=== PATIENT | female | born 1980 | race Caucasian/White ===

== ENCOUNTER → 2016-05-17 | Outpatient (CLI) | payer OTHER ==
--- NOTE | 2016-05-17 12:04 | REP ---
TWO VIEW CHEST: There is no evidence of acute infiltrate. No pleural effusion is seen. The heart is normal in size. The mediastinal silhouette is unremarkable. The visualized osseous structures are intact. IMPRESSION: No acute pulmonary disease.
== END ==
LOC: M CLY 11:28
PROVIDERS: ATTEND Family Medicine
DX: R05 Cough (principal)

== ENCOUNTER → 2016-06-07 | Outpatient (REF) | payer OTHER | LOC: M SFHCWAGY 12:23 | PROVIDERS: ATTEND Nurse Practitioner Women's Health | DX: Z01.419 Encounter for gynecological examination (general) (routine) without abnormal findings (principal); Z11.51 Encounter for screening for human papillomavirus (HPV) ==

== ENCOUNTER → 2017-04-14 | Outpatient (REF) | payer OTHER ==
[2017-04-14 12:04] LABS: ALBUMIN 4.2 GM/DL (3.2-5.2); ALBUMIN/GLOBULIN RATIO 1.27 (1.00-1.93); ALKALINE PHOSPHATASE 61 U/L (45-117); ALT/SGPT 25 U/L (12-78); ANION GAP 6 MEQ/L (8-16); AST/SGOT 19 U/L (7-37); BILIRUBIN,TOTAL 0.7 MG/DL (0.2-1.0); BLOOD UREA NITROGEN 12 MG/DL (7-18); CALCIUM LEVEL 8.7 MG/DL (8.5-10.1); CARBON DIOXIDE LEVEL 30 MEQ/L (21-32); CHLORIDE LEVEL 103 MEQ/L (98-107); CHOLESTEROL LEVEL 200 MG/DL (<200); CHOLESTEROL RISK RATIO 2.173 (<5); CREATININE FOR GFR 0.81 MG/DL (0.55-1.30); GLOMERULAR FILTRATION RATE > 60.0 (>60); GLUCOSE, FASTING 84 MG/DL (70-100); HDL CHOLESTEROL 92 MG/DL (>40); LDL CHOLESTEROL 94.8 MG/DL (<100); NON-HDL-C 108 MG/DL; POTASSIUM SERUM 3.9 MEQ/L (3.5-5.1); SODIUM LEVEL 139 MEQ/L (136-145); THYROXINE (T4) 9.9 UG/DL (4.5-12.0); TOTAL PROTEIN 7.5 GM/DL (6.4-8.2); TRIGLYCERIDES LEVEL 66 MG/DL (<150)
[2017-04-14 12:09] LABS: TOTAL T3 89.7 NG/DL (60.0-181.0)
[2017-04-18 00:06] LABS: VITAMIN D 1,25 DIHYDROXY 27.9 pg/mL (19.9-79.3)
== END ==
LOC: M SFHCCLAY 08:23
DX: Z00.00 Encounter for general adult medical examination without abnormal findings (principal); Z13.29 Encounter for screening for other suspected endocrine disorder; Z13.220 Encounter for screening for lipoid disorders; E55.9 Vitamin D deficiency, unspecified

== ENCOUNTER → 2017-06-14 | Outpatient (REF) | payer OTHER | LOC: M SFHCWAGY 08:15 | DX: Z12.4 Encounter for screening for malignant neoplasm of cervix (principal) ==

== ENCOUNTER → 2018-01-26 | Outpatient (CLI) | payer OTHER ==
[2018-01-26 18:03] LABS: BASO % 0.4 % (0.0-1.0); EOS # 0.1 10^3/uL (0.0-0.50); EOS % 1.3 % (0.0-3.0); HEMOGLOBIN 12.6 g/dl (12.0-15.5); IMMATURE GRANULOCYTE % 0.5 % (0-3.0); LYMPH # 1.3 10^3/uL (1.5-4.5); LYMPH % 15.3 % (24.0-44.0); MEAN CORPUSCULAR HEMOGLOBIN 29.9 pg (27.0-33.0); MEAN CORPUSCULAR HGB CONC 33.2 g/dl (32.0-36.5); MONO # 0.6 10^3/uL (0.0-0.8); MONO % 6.7 % (0.0-5.0); NEUTROPHILS # 6.3 10^3/uL (1.8-7.7); NEUTROPHILS % 75.8 % (36.0-66.0); PLATELET COUNT, AUTOMATED 244 10^3/uL (150-450); RED BLOOD COUNT 4.22 10^6/uL (4.00-5.40); RED CELL DISTRIBUTION WIDTH 12.4 % (11.5-14.5); WHITE BLOOD COUNT 8.3 10^3/uL (4.0-10.0)
[2018-01-29 11:57] LABS: HBsAg Prenatal NEGATIVE (NEGATIVE); HIV 1&2 SCREEN CENTAUR NEGATIVE (NEGATIVE); RUBELLA IgG QUALITATIVE IMMUNE (IMMUNE)
[2018-01-29 11:57] LABS: HEPATITIS C VIRUS ABY INDEX 0.1 INDEX (<0.8)
== END ==
LOC: M SMT 13:37
DX: Z36.89 Encounter for other specified antenatal screening (principal)
CPT/HCPCS: 86762

== ENCOUNTER → 2018-04-03 | Outpatient (REF) | payer OTHER ==
[2018-04-03 15:32] LABS: CHLAMYDIA DNA AMPLIFICATION NEGATIVE (NEGATIVE); GC DNA AMPLIFICATION NEGATIVE (NEGATIVE)
== END ==
LOC: M LAB REF 13:10
PROVIDERS: ATTEND Advanced Practice Midwife
DX: O09.521 Supervision of elderly multigravida, first trimester (principal); Z3A.00 Weeks of gestation of pregnancy not specified

== ENCOUNTER → 2018-04-04 | Outpatient (CLI) | payer OTHER ==
--- NOTE | 2018-04-05 05:15 | REP ---
Clinical: Anatomical evaluation. Comparison: None . Findings: Examination demonstrates a single live intrauterine in cephalic presentation. motion is identified by technologist. Placenta is noted anterior and grade grade zero without evidence for placenta previa or abruption. Amniotic fluid volume is normal. Cervix measures 4.4 cm in length and appears closed. No evidence for nuchal cord. Gestational age by LMP 19 weeks 1 day with YAKOV 08/28/2018 . Gestational age by current measurements an 45-ajnm-4-day with YAKOV is 08/27/2018 . FHR equals 150 beats per minute. BPD 4.4 cm 19 weeks 1 day HC 16.2 cm 19 weeks 0 days AC 14.5 cm 19 weeks 5 days FL 3.0 cm 19 weeks 1 day HL 2.8 cm 19 weeks 1 day HC/AC ratio 1.12 Estimated weight 293 grams ( 59th percentile). Anatomical assessment demonstrates normal structures including cranium, choroid plexus, cavum, cerebellum/posterior fossa, facial features, lungs, four-chamber heart/ventricular outflow tracts, diaphragm, stomach, cord insertion/three-vessel cord, kidneys/bladder, spine, and extremities. Impression: Single live intrauterine in cephalic presentation demonstrating appropriate interval growth. Anatomical assessment is complete and normal. No gross abnormalities are identified. Electronically Signed by Jose Montejo MD 04/05/2018 05:07 A
== END ==
LOC: M RAD 11:10
PROVIDERS: ATTEND Advanced Practice Midwife
DX: O09.512 Supervision of elderly primigravida, second trimester (principal); Z3A.19 19 weeks gestation of pregnancy

== ENCOUNTER → 2018-07-31 | Outpatient (REF) | payer OTHER | LOC: M LAB REF 17:48 | PROVIDERS: ATTEND Advanced Practice Midwife | DX: Z34.83 Encounter for supervision of other normal pregnancy, third trimester (principal); Z3A.00 Weeks of gestation of pregnancy not specified ==

== ENCOUNTER 2018-09-07 11:27 | Inpatient (IN) | payer OTHER ==
[~2018-09-07] VITALS: Ht 165.1 cm; Wt 77.7 kg
[2018-09-07] VITALS (10 sets, daily range): BP systolic 107–123; BP diastolic 58–79
[2018-09-07] MEDS ORDERED: PRENTAB9 PO (11:37)
[2018-09-07] MEDS ORDERED: PENICILLIN G POTASSIUM IV 5 MU in D5W MINI-BAG PLUS 100 ML IV STA (12:14)
[2018-09-07] MEDS ORDERED: LR 1,000 ML IV SCH (12:14)
[2018-09-07] MEDS ORDERED: OXYTOCIN DRIP 30 UNITS in APPROPRIATE DILUENT 1 EA IV SCH ×2 (12:15→17:37)
--- NOTE | 2018-09-07 13:06 | HPE ---
DATE OF ADMISSION: 09/07/2018 Yee is a 38-year-old 3, para 2-0-0-2 at 41-3/7 weeks gestation, estimated date of confinement (EDC) of 08/28/2018 based on last menstrual period, confirmed by first trimester ultrasound who presents to labor and delivery today for induction of labor due to post-term . She does report some mild contractions and some pink bloody show noted this morning at 0500 hours. She denies leakage of fluid and the fetus has been active. Her care was initiated at [facility] in the first trimester. Her course complicated by advanced maternal age. She did decline genetic serum screening labs and a history of anxiety. OBSTETRIC LABS:A positive, antibody screen negative, Rubella immune, VDRL non- reactive, HBsAG negative, HIV negative, Hep C antibody non-reactive, GC/CT negative, GDS 109, GBS positive. PAST MEDICAL HISTORY: anxiety. Fibroid uterus. Abnormal Pap more than 20 years ago. Childhood varicella. SURGERIES: None. FAMILY HISTORY: Noncontributory. SOCIAL HISTORY: The patient is . Her is at bedside and supportive. She is a nonsmoker. Denies alcohol and drug use. No history of any sexually transmitted infections and denies history of abuse physical, sexual and emotional allergies. ALLERGIES: No known drug allergies. CURRENT MEDICATIONS: - vitamins OBJECTIVE: Temperature 99, pulse 86, respirations 18, blood pressure 109/71. She is alert and oriented times three. She is in no distress. Smiling and talkative. heart rate is 135 with moderate variability, positive accelerations, no decelerations observed. Contractions are approximately every 7-8 minutes. Abdomen is gravid, cephalic presentation. Estimated weight 7-1/2 to 8 pounds. Sterile vaginal exam 2 cm, 90% effaced, -2 station, midposition, normal show and soft. ASSESSMENT: Intrauterine at 41-3/7 weeks. heart rate category 1. Post-term . PLAN: Admit the patient to labor and delivery. Routine labs. Out of bed ad gracie. Clear liquid diet at this time. Antibiotics for GBS prophylaxis. Start Pitocin IV for labor induction. I did review risks, benefits and alternatives with the patient and her , all of their questions were answered. She has been verbally consented for emergency surgery and blood products if necessary. I do anticipate an active labor and a spontaneous vaginal delivery. MTDD
[2018-09-07 13:14] LABS: HEMATOCRIT 38.5 % (36.0-47.0); HEMOGLOBIN 12.6 g/dl (12.0-15.5); MEAN CORPUSCULAR HEMOGLOBIN 30.1 pg (27.0-33.0); MEAN CORPUSCULAR HGB CONC 32.7 g/dl (32.0-36.5); MEAN CORPUSCULAR VOLUME 91.9 fl (80.0-96.0); PLATELET COUNT, AUTOMATED 294 10^3/uL (150-450); RED BLOOD COUNT 4.19 10^6/uL (4.00-5.40); WHITE BLOOD COUNT 11.6 10^3/uL (4.0-10.0)
[2018-09-07] MEDS ORDERED: PENICILLIN G POTASSIUM IV 2.5 MU in APPROPRIATE DILUENT 1 EA IV SCH (16:00)
[2018-09-07] MEDS ORDERED: MEASLES,MUMPS,RUBELLA VACCINE INJ (MMR-II) (90707) SC SCH (17:45)
[2018-09-07] MEDS ORDERED: DIBUCAINE 1% OINTMENT 30GM TOP PRN (17:45)
[2018-09-07] MEDS ORDERED: METHYLERGONOVINE MALEATE 0.2 MG TAB PO PRN (17:45)
[2018-09-07] MEDS ORDERED: IBUPROFEN 600 MG TAB PO PRN (17:45)
[2018-09-07] MEDS ORDERED: DOCUSATE SODIUM 100 MG CAP PO PRN (17:45)
[2018-09-07] MEDS ORDERED: IBUPROFEN 800 MG TAB PO PRN (17:45)
[2018-09-07] MEDS ORDERED: ONDANSETRON 4MG/2ML VIAL (J2405) IV PRN (17:45)
[2018-09-07] MEDS ORDERED: RHOGAM 300 MCG (1500 IU) INJ (J2790) IM SCH (17:45)
[2018-09-07] MEDS ORDERED: ACETAMINOPHEN TAB 650MG DOSE (2X325MG) PO PRN (17:45)
[2018-09-07] MEDS ORDERED: ACETAMINOPHEN 500 MG TAB PO PRN (17:45)
--- NOTE | 2018-09-07 17:46 | DN ---
DATE: 09/07/2018 Yee is a 38-year-old 3, para 3-0-0-3 now, who was admitted to labor and delivery for induction of labor due to post-term . Intravenous (IV) Pitocin was utilized to labor did ensue. She coped with her labor physiologically. She had spontaneous rupture of membranes, clear odorless fluid at 1649. She reached full dilation at 1703. She pushed to a normal spontaneous vaginal delivery of a live male infant in occiput anterior (OA) position with restitution to right occipital transverse (ROT) position at 1708. There was a nuchal cord times one, loose, reduced manually at the time of delivery. was placed on the maternal abdomen crying and active for maternal bonding. Mouth and nares were bulb suctioned. Cord was clamped times two once pulsations ceased and cut by the father of the baby under my direction. Spontaneous expulsion of an intact placenta with 3-vessel cord by Honeycutt mechanism was at 1713. Cord blood was obtained. Uterine hemostasis achieved with IV Pitocin rapid infusion and uterine fundal massage. Estimated blood loss 300 mL. Perineum and vagina inspected and noted to be intact. Raw[place]ins male weighed 7 pounds 12 ounces, 3510 grams, scores 8 and 9. Mother is going to breast-feed her son, and the family have named him Tim. At the close of delivery lap counts and instrument counts were correct and verified.
[2018-09-08 06:00] VITALS: BP 103/58
--- NOTE | 2018-09-08 06:49 | IPNPDOC ---
Text Note Date of Service The patient was seen on 09/08/18. NOTE Feels well. Adequate pain management. Nursing on demand. Voiding. Reports hemorrhoids VSS, afebrile, normotensive Breasts soft, nipples intact Fundus firm, NT, down 1 FB Lochia rubra light without odor Perineum intact PP #1 Routine Care. Reviewed treatments for hemorrhoids. Anticipate D/C in am. VS,Fishbone, I+O VS, Fishbone, I+O Laboratory Tests 09/07/18 11:57 Red Blood Count 4.19, Mean Corpuscular Volume 91.9, Mean Corpuscular Hemoglobin 30.1, Mean Corpuscular Hemoglobin Concent 32.7, Red Cell Distribution Width 13.2 Vital Signs Date Time Temp Pulse Resp B/P (MAP) Pulse Ox O2 Delivery O2 Flow Rate FiO2 09/08/18 06:00 99.1 82 16 103/58 (73) I&O- Last 24 Hours up to 6 AM 09/08/18 06:00 Output Total 700 ml Balance -700 ml Amaris Mcallister CNM Sep 08, 2018 06:49
[2018-09-08] MEDS ORDERED: ANUSOL HC CREAM 30GM TOP PRN (07:00)
[2018-09-08] MEDS: PRENATAL VITAMINS CHEWABLE TABLET PO SCH (07:05)
[2018-09-08 18:10] VITALS: BP 112/66
[2018-09-09 06:24] VITALS: BP 113/59
[2018-09-09] MEDS: PRENATAL VITAMINS CHEWABLE TABLET PO SCH (09:02)
--- NOTE | 2018-09-09 11:17 | NUR ---
PPD#2 s/p Pain well controlled, voiding spontaneously, tolerating regular diet, ambulating without difficulty, lochia decreasing and minimal. No PRICE,cp,sob. Breast feeding. VSS,normotensive, normal HR, afebrile Abd: soft,nt,nd Ext: no c/c/e A/P: PPD#2. Meeting d/c criteria. -Routine instructions/precautions reviewed. -Follow up in 6-8 weeks or sooner PRN. Sushil Hollins DO
[2018-09-09] MEDS ORDERED: IBUP80TA PO (11:19)
== END 2018-09-09 16:45 | disposition home or self-care (01) | DRG 807 ==
LOC: M LDI 11:27 → M OBS 19:30
PROVIDERS: ADMIT Advanced Practice Midwife; ATTEND Advanced Practice Midwife
PROC: 10E0XZZ Delivery of Products of Conception, External Approach (ICD-10-PCS; principal; 2018-09-07)
PROC: 3E033VJ Introduction of Other Hormone into Peripheral Vein, Percutaneous Approach (ICD-10-PCS; 2018-09-07)
DX: O48.0 Post-term pregnancy (principal); Z37.0 Single live birth; Z3A.41 41 weeks gestation of pregnancy; O99.824 Streptococcus B carrier state complicating childbirth; O69.81X0 Labor and delivery complicated by cord around neck, without compression, not applicable or unspecified

== ENCOUNTER → 2021-04-26 | Outpatient (REF) | payer OTHER ==
[~2021-04-26] MED LIST: IBUP80TA PO; PRENTAB9 PO
[2021-04-26 11:35] LABS: BASO % 0.4 % (0.0-1.0); EOS # 0.1 10^3/uL (0.0-0.5); EOS % 2.4 % (0.0-3.0); HEMATOCRIT 38.6 % (36.0-47.0); HEMOGLOBIN 12.3 g/dl (12.0-15.5); MEAN CORPUSCULAR HEMOGLOBIN 29.5 pg (27.0-33.0); MEAN CORPUSCULAR HGB CONC 31.9 g/dl (32.0-36.5); MEAN CORPUSCULAR VOLUME 92.6 fl (80.0-96.0); MONO # 0.4 10^3/uL (0.0-0.8); MONO % 8.7 % (2.0-8.0); NEUTROPHILS # 2.5 10^3/uL (1.5-8.5); NEUTROPHILS % 49.1 % (36.0-66.0); PLATELET COUNT, AUTOMATED 246 10^3/uL (150-450); RED BLOOD COUNT 4.17 10^6/uL (4.00-5.40)
[2021-04-26 12:06] LABS: ALBUMIN 4.3 GM/DL (3.2-5.2); ALT/SGPT 22 U/L (12-78); BILIRUBIN,TOTAL 0.4 MG/DL (0.2-1.0); BLOOD UREA NITROGEN 18 MG/DL (7-18); CARBON DIOXIDE LEVEL 32 MEQ/L (21-32); CHLORIDE LEVEL 107 MEQ/L (98-107); CHOLESTEROL LEVEL 172 MG/DL (<200); CHOLESTEROL RISK RATIO 2.356 (<5); CREATININE FOR GFR 0.94 MG/DL (0.55-1.30); FREE T4 0.98 NG/DL (0.76-1.46); GLOMERULAR FILTRATION RATE > 60.0 (>58); GLUCOSE, FASTING 90 MG/DL (70-100); HDL CHOLESTEROL 73 MG/DL (>40); LDL CHOLESTEROL 74 MG/DL (<100); NON-HDL-C 99 MG/DL; POTASSIUM SERUM 4.1 MEQ/L (3.5-5.1); SODIUM LEVEL 142 MEQ/L (136-145); TOTAL PROTEIN 7.3 GM/DL (6.4-8.2); TRIGLYCERIDES LEVEL 125 MG/DL (<150)
== END ==
LOC: M SFHCCLAY 07:54
PROVIDERS: ATTEND Family Medicine
DX: E55.9 Vitamin D deficiency, unspecified (principal); Z13.29 Encounter for screening for other suspected endocrine disorder; Z13.220 Encounter for screening for lipoid disorders; R07.89 Other chest pain

== ENCOUNTER → 2021-07-13 | Outpatient (REF) | payer OTHER | LOC: M PLALAB 08:49 | PROVIDERS: ATTEND Advanced Practice Midwife | DX: Z12.4 Encounter for screening for malignant neoplasm of cervix (principal) ==

== ENCOUNTER → 2021-10-08 | Outpatient (CLI) | payer OTHER | LOC: M WHC 08:07 | PROVIDERS: ATTEND Advanced Practice Midwife | DX: D25.9 Leiomyoma of uterus, unspecified (principal) ==

== ENCOUNTER → 2023-05-01 | Outpatient (REF) | payer OTHER ==
[2023-05-01 12:19] LABS: HEMATOCRIT 40.5 % (36.0-47.0); HEMOGLOBIN 13.1 g/dl (12.0-15.5); MEAN CORPUSCULAR HEMOGLOBIN 30.3 pg (27.0-33.0); MEAN CORPUSCULAR HGB CONC 32.3 g/dl (32.0-36.5); MEAN CORPUSCULAR VOLUME 93.5 fl (80.0-96.0); PLATELET COUNT, AUTOMATED 222 10^3/uL (150-450); RED BLOOD COUNT 4.33 10^6/uL (4.00-5.40); WHITE BLOOD COUNT 4.3 10^3/uL (4.0-10.0)
[2023-05-01 12:46] LABS: ALBUMIN 4.2 G/DL (3.2-5.2); ALKALINE PHOSPHATASE 49 U/L (46-116); ALT/SGPT 21 U/L (7.0-40); AST/SGOT 14 U/L (<34); BILIRUBIN,TOTAL 0.7 MG/DL (0.3-1.2); BLOOD UREA NITROGEN 13 MG/DL (9-23); CALCIUM LEVEL 9.6 MG/DL (8.5-10.1); CARBON DIOXIDE LEVEL 31 MMOL/L (20-31); CHLORIDE LEVEL 105 MMOL/L (98-107); CREATININE FOR GFR 0.83 MG/DL (0.55-1.30); GLOMERULAR FILTRATION RATE > 60.0 (>58); GLUCOSE, FASTING 94 MG/DL (60-100); POTASSIUM SERUM 4.1 MMOL/L (3.5-5.1); SODIUM LEVEL 138 MMOL/L (136-145)
== END ==
LOC: M SFHCCLAY 07:37
PROVIDERS: ATTEND Family Medicine
DX: Z00.00 Encounter for general adult medical examination without abnormal findings (principal); L40.9 Psoriasis, unspecified; E55.9 Vitamin D deficiency, unspecified

== ENCOUNTER → 2024-09-02 | Outpatient (REF) | payer OTHER ==
[2024-09-02 12:38] LABS: BASO # 0.0 10^3/uL (0.0-0.2); BASO % 0.9 % (0.0-1.0); EOS # 0.1 10^3/uL (0.0-0.5); EOS % 1.6 % (0.0-3.0); LYMPH # 1.5 10^3/uL (1.5-5.0); LYMPH % 34.1 % (24.0-44.0); MONO # 0.4 10^3/uL (0.0-0.8); MONO % 9.4 % (2.0-8.0); NEUTROPHILS # 2.4 10^3/uL (1.5-8.5); NEUTROPHILS % 53.6 % (36.0-66.0); PLATELET COUNT, AUTOMATED 214 10^3/uL (150-450)
[2024-09-02 12:41] LABS: LUTEINIZING HORMONE 15.4 mIU/ML
[2024-09-02 12:42] LABS: FREE T4 1.16 NG/DL (0.89-1.76)
[2024-09-02 16:06] LABS: TOTAL T3 94.9 NG/DL (60.0-181.0)
== END ==
LOC: M SFHCCLAY 09:30
PROVIDERS: ATTEND Family Medicine
DX: Z13.29 Encounter for screening for other suspected endocrine disorder (principal); Z00.00 Encounter for general adult medical examination without abnormal findings; N92.6 Irregular menstruation, unspecified

== ENCOUNTER → 2024-10-16 | Outpatient (REF) | payer OTHER ==
[2024-10-19 17:13] LABS: HPV APTIMA Not Detected (Not Detected)
== END ==
LOC: M SFHCCLAY 16:15
PROVIDERS: ATTEND Physician Assistant
DX: Z12.4 Encounter for screening for malignant neoplasm of cervix (principal)
CPT/HCPCS: 87624; G0123